=== PATIENT | male | born 1985 | race Hispanic/Latino ===

== ENCOUNTER 2024-05-24 10:48 | Emergency (ER) | payer OTHER, BC ==
[~2024-05-24] VITALS: Ht 180.3 cm; Wt 112.9 kg
--- NOTE | 2024-05-24 11:08 | ERN ---
ED Note History of Present Illness Stated Complaint: HEAD INJURY Chief Complaint: Head Injury Time Seen by MD: 10:49 Dictation: PATIENT IS A 39-YEAR-OLD MALE HERE FROM WORK WITH COMPLAINTS OF A LEFT FRONTAL HEMATOMA WITH SUPERFICIAL LACERATION AND FACIAL PAIN AFTER A METAL BOX FELL OFF THE WALL. HE HAS A COUNSELOR AT A LOCAL CENTER AND HAS A VIDEO OF A BOX FALLING FROM THE WALL AND STRIKING HIM. HE DENIES ANY LOC NO NAUSEA NO VOMITING. STATES HE IS HAVING FACIAL PAIN. HE DROVE HIMSELF TO THE EMERGENCY ROOM, GAIT IS STEADY TO TRIAGE. LAST TETANUS SHOT IS UNKNOWN. COMPLAINING OF FRONTAL PAIN AND LEFT FACE PAIN. NO MIDLINE SPINE PAIN. NEUROVASCULAR CMS INTACT TO ALL EXTREME Allergies: Coded Allergies: morphine (Unverified Allergy, Unknown, 05/24/24) Home Meds Active Scripts Ibuprofen (Ibuprofen 800 mg Tab) 800 Mg Tab, 800 MG PO Q8H PRN for fever or pain, #30 TAB 0 Refills Prov:ELENA FAJARDO CERAMIC CHEMIST 05/24/24 Past Medical History RN Note Reviewed/Agreed w/PFSH: Yes Review of System Dictation CONSTITUTIONAL: NEGATIVE EXCEPT FOR HPI HEAD/FACE: NEGATIVE EXCEPT FOR HPI LEFT FOREHEAD HEMATOMA WITH SUPERFICIAL LACERATION NO REPAIR REQUIRED LEFT FACIAL TENDERNESS EENT: NEGATIVE EXCEPT FOR HPI RESPIRATORY: NEGATIVE EXCEPT FOR HPI GASTROINTESTINAL/ABDOMINAL: NEGATIVE EXCEPT FOR HPI GENITOURINARY: NEGATIVE EXCEPT FOR HPI MUSCULOSKELETAL: NEGATIVE EXCEPT FOR HPI INTEGUMENTARY: NEGATIVE EXCEPT FOR HPI NEUROLOGICAL/PSYCH: NEGATIVE EXCEPT FOR HPI HEMATOLOGIC/LYMPHATIC: NEGATIVE EXCEPT FOR HPI ALL SYSTEMS NEGATIVE, EXCEPT NOTED ABOVE. 13 POINT REVIEW OF SYSTEMS ASSESSED AND ALL NEGATIVE EXCEPT FOR ABOVE. Initial Vital Sign VS Vital Signs Date Time Temp Pulse Resp B/P (MAP) Pulse Ox O2 Delivery O2 Flow Rate FiO2 05/24/24 10:59 98.4 67 14 173/119 97 Room Air 05/24/24 12:22 0 21 Physical Exam Dictation VITAL SIGNS REVIEWED GENERAL APPEARANCE: ALERT, ORIENTED X 3, MILD ACUTE DISTRESS, WELL DEVELOPED, NOURISHED. HEAD AND FACE: LEFT FOREHEAD HEMATOMA WITH SUPERFICIAL LACERATION. NO REPAIR REQUIRED LEFT CHEEK AND TMJ TENDERNESS. FULL ROM TO MANDIBLE EYES: PERRL, PINK CONJUNCTIVAS, EYELID NO TRAUMA, ANTERIOR CHAMBER WITH ARCUS SENILIS. EARS: PINNAS INTACT AND NO SIGNS OF TRAUMA OR ERYTHEMA EAR CANALS CLEAR AND NO DISCHARGE TM NO ERYTHEMA NO HEMOTYMPANUM NOSE: NO DISCHARGE, NO BLEEDING. OROPHARYNX: MOUTH NORMAL, TONGUE PINK, PHARYNX CLEAR,NO ERYTHEMA, TONSILS NO EXUDATES, NO ABSCESSES NOTED, MUCOUS MEMBRANE MOIST NECK: SUPPLE, NON-TENDER, NO THYROMEGALY, NO MASSES, NO JVD, NO BRUITS BREAST:DEFERRED CHEST:NO TENDERNESS, NO CREPITUS, NO PARADOXICAL MOVEMENT, NO RETRACTIONS LUNGS:CLEAR, WELL-VENTILATED, SYMMETRIC, NO RALES, NO WHEEZING, NO RHONCHI, NO STRIDOR, GOOD BREATH SOUNDS BILATERALLY HEART: REGULAR RATE, REGULAR RHYTHM, NO MURMUR, NO GALLOPS VASCULAR: NO PERIPHERAL EDEMA, ABDOMEN: SOFT, POSITIVE BOWEL SOUNDS, NONDISTENDED, NO GUARDING, NONTENDER, NO REBOUND, NO MASSES NO HEPATOMEGALY, NO SPLENOMEGALY, NO CHANEY'S SIGN, NO HERNIAS. RECTAL: DEFERRED GENITAL: DEFERRED NEUROLOGICAL: NORMAL SPEECH, MOTOR FUNCTION INTACT, SENSORY FUNCTION INTACT MUSCULOSKELETAL: NECK NONTENDER, FULL RANGE OF MOTION, BACK NONTENDER, FULL RANGE OF MOTION, EXTREMITIES: NONTENDER, FULL RANGE OF MOTION SKIN: COLOR PINK, SUPERFICIAL ABRASION TO HEMATOMA TO LEFT FOREHEAD. NO REPAIR REQUIRED. LYMPHATIC: DEFERRED Results (Laboratory/Radiology) Laboratory/Radiology REASON: LEFT FOREHEAD HEMATOMA LACERATION AFTER METAL BOX FELL ON HEAD ORDERING PHYSICIAN: ELENA FAJARDO NP PROCEDURE: MAXFACI WO - CT MAXILLOFACIAL W/O CONTRAST CT MAXILLOFACIAL W/O CONTRAST HISTORY: Ulceration COMPARISON: None TECHNIQUE: Multiple sequential high-resolution axial images of the paranasal sinuses were obtained. Postprocessing sagittal and coronal reconstruction images were also obtained. Patient was not given contrast through intravenous route. FINDINGS: Left frontal scalp soft tissue swelling is seen. Nasal septum is grossly midline. There is no evidence of mucoperiosteal thickening involving the paranasal sinuses. The infundibula are patent bilaterally. There is right maxillary sinus polyp. No acute displaced fracture is seen. There is no evidence of air-fluid level in the paranasal sinuses. Parapharyngeal fat planes are preserved bilaterally. IMPRESSION: 1. No acute displaced fracture is seen. Labs Reviewed?: Yes ED Course ED Course Orders Procedure Category Date Status Time Neomy PHA 05/24/24 Complete Sulf/Bacitra/Polymyxin 11:30 Ibuprofen 800 Mg Tab PHA 05/24/24 Complete (Motrin) 11:30 Tetanus,Diphtheria PHA 05/24/24 Complete Tox [Adult] (Diphther 11:30 Ct Maxillofacial W/O CT 05/24/24 Resulted Contrast 11:03 Apply Ice Pack To: CPOE 05/24/24 Transmitted (Er) 11:03 Current Medications Medications (Trade) Dose Ordered Sig/Ronak Route PRN Reason Start Time Stop Time Status Last Admin Dose Admin Ibuprofen (moTRIN) 800 mg ONCE ONCE PO 05/24/24 11:30 05/24/24 11:31 DC 05/24/24 12:26 Neomycin/ Polymyxin/ Bacitracin (Triple Antibiotic Ointment) 1 appl ONCE ONCE TP 05/24/24 11:30 05/24/24 11:31 DC 05/24/24 12:26 Tetanus/ Diphtheria Toxoids Adsorbed (DiphthERIA-teTANUS TOXOID [ADULT]/ DECAVAC) 0.5 ml ONCE ONCE IM 05/24/24 11:30 05/24/24 11:31 DC 05/24/24 12:28 Vital Signs Date Time Temp Pulse Resp B/P (MAP) Pulse Ox O2 Delivery O2 Flow Rate FiO2 05/24/24 12:22 98.2 65 16 155/111 98 Room Air* 0 21 05/24/24 10:59 98.4 67 14 173/119 97 Room Air 1205/PATIENT ALERT AND ORIENTED X4 SPEECH IS CLEAR. NEUROLOGICALLY INTACT AND GAIT STEADY. 1220/REPEAT BLOOD PRESSURE 155/111 PATIENT STATES HE HAS NOT TAKEN HIS VALSARTAN TODAY AND WE WILL TAKE IT WHEN HE GETS HOME. I ADVISED HIM THAT HIS DIASTOLIC BLOOD PRESSURE IS NOT CONTROLLED AND HE NEEDS TO SEE HIS PRIMARY CARE DOCTOR FOR MANAGEMENT. Medical Decision Making MDM MEDICAL DECISION-MAKING BASED ON TETANUS UPDATE, CT OF MAXILLOFACIAL AND MONITORING BLOOD PRESSURE. TETANUS WAS UPDATED NO REPAIR REQUIRED A FACIAL ABRASION REPEAT BLOOD PRESSURE 155/111 AND PATIENT WILL TAKE VALSARTAN WHEN HE GETS HOME. HE IS NEUROLOGICALLY INTACT AND ADVISED TO SEE HIS PRIMARY CARE DOCTOR FOR FOLLOW UP AND RETURN TO WORK DX & DISP Disposition: Discharge Departure Impression: Primary Impression: Traumatic hematoma of forehead Additional Impressions: Forehead abrasion, Facial contusion, Hypertension Condition: Stable Scripts Ibuprofen (Ibuprofen 800 mg Tab) 800 Mg Tab 800 MG PO Q8H PRN for fever or pain, #30 TAB 0 Refills Prov: ELENA FAJARDO CERAMIC CHEMIST 05/24/24 Additional Instructions: FOLLOW-UP WITH PRIMARY CARE PROVIDER IN 1 TO 2 DAYS. TAKE MEDICATIONS DIRECTED HERE IN THE EMERGENCY ROOM. OKAY TO CONTINUE HOME MEDICATIONS UNLESS OTHERWISE DISCUSSED DURING YOUR VISIT IN THE EMERGENCY ROOM TODAY. RETURN TO YOUR NEAREST EMERGENCY ROOM IF SYMPTOMS WORSEN OR IF THERE IS NO IMPROVEMENT. CALL 911 IF YOU NEED IMMEDIATE ASSISTANCE. TAKE TYLENOL OR MOTRIN [id number] NEEDED AND IF NO CONTRAINDICATIONS ARE PRESENT. INCREASE ORAL HYDRATION. A WOUND CULTURE OR URINE CULTURE WAS ORDERED HERE IN THE EMERGENCY ROOM DEPARTMENT PLEASE FOLLOW-UP WITH PRIMARY CARE PROVIDER AND ADVISE THEM TO GET REPEAT PORTS FROM OUR FACILITY. IF YOU HAD ANY TINO WRAP/SPLINTS THAT WERE APPLIED HERE, PLEASE DO NOT REMOVE THEM UNTIL YOU SEE YOUR PRIMARY CARE OR SPECIALTY. TRIPLE ANTIBIOTIC OINTMENT/[id number] TIMES A DAY FOR FIVE DAYS TO FOREHEAD ABRASION. COOL COMPRESSES TO FOREHEAD SWELLING THREE TO 4 TIMES A DAY. NO WORK UNTIL CLEARED BY YOUR PRIMARY CARE DOCTOR TOMORROW AND HAVE HIM RECH PATEL YOUR BLOOD PRESSURE. TAKE YOUR BLOOD PRESSURE MEDICATION SOON Referrals: BART RODRÍGUEZ (PCP) Time of Disposition: 12:25 I have reviewed the case, and I agree with, Diagnosis and Plan I performed a substantive portion of the visit. I have reviewed and personally made and approve the management plan that is documented in the notes by myself with CHUY/resident. I acknowledged full responsibility for the patient's management plan. ELENA FAJARDO NP May 24, 2024 11:08 JONATHAN INFATNE DO May 24, 2024 14:00
--- NOTE | 2024-05-24 12:03 | HMCIMG ---
CT MAXILLOFACIAL W/O CONTRAST HISTORY: Ulceration COMPARISON: None TECHNIQUE: Multiple sequential high-resolution axial images of the paranasal sinuses were obtained. Postprocessing sagittal and coronal reconstruction images were also obtained. Patient was not given contrast through intravenous route. FINDINGS: Left frontal scalp soft tissue swelling is seen. Nasal septum is grossly midline. There is no evidence of mucoperiosteal thickening involving the paranasal sinuses. The infundibula are patent bilaterally. There is right maxillary sinus polyp. No acute displaced fracture is seen. There is no evidence of air-fluid level in the paranasal sinuses. Parapharyngeal fat planes are preserved bilaterally. IMPRESSION: 1. No acute displaced fracture is seen. CT was performed with one or more following dose reduction techniques: automated exposure control, adjustment of the mA and kv according to patient's size, or use of a iterative reconstruction technique.
[2024-05-24 12:22] VITALS: BP 155/111; PULSE 65; RESP 16; TEMP 98.3; O2SAT 98
[2024-05-24] MEDS ORDERED: IBUP-2077 PO (12:26)
[2024-05-24] MEDS: ibuPROFEN 800 MG TAB PO ONE (12:26)
[2024-05-24] MEDS: NEOMY SULF/BACITRA/POLYMYXIN B 1 EACH PACKET TP ONE (12:26)
[2024-05-24] MEDS: teTANUS/diphthERIA TOXOID [ADULT] 0.5 ML VIAL IM ONE (12:28)
== END 2024-05-24 12:48 | disposition home or self-care (01) ==
LOC: EDH 10:48
DX: S00.83XA Contusion of other part of head, initial encounter (principal); S00.81XA Abrasion of other part of head, initial encounter; I10 Essential (primary) hypertension; Z88.5 Allergy status to narcotic agent; W22.8XXA Striking against or struck by other objects, initial encounter; Y93.89 Activity, other specified; Y92.89 Other specified places as the place of occurrence of the external cause; Y99.8 Other external cause status
CPT/HCPCS: 70486; 90471; 90714; 99285